=== PATIENT | female | born 1950 | race Caucasian/White ===

== ENCOUNTER → 2017-01-17 | Outpatient (CLI) | payer MEDICARE ==
--- NOTE | 2017-01-21 09:06 | MM ---
Reason for exam: screening (asymptomatic). Last mammogram was performed 1 year and 7 months ago. History: Patient is postmenopausal, history of other cancer, and is nulliparous. Family history of breast cancer in mother at age 79. Physical Findings: A clinical breast exam by your physician is recommended on an annual basis and results should be correlated with mammographic findings. MG 3D Screening Mammo W/Cad Bilateral CC and MLO view(s) were taken. Prior study comparison: June 06, 2015, bilateral MG 3d screening mammo w/cad. March 12, 2014, bilateral MG screening mammo w CAD. March 10, 2013, bilateral digital screening mammo w/CAD. There are scattered fibroglandular densities. Scattered benign secretory calcifications. No significant changes when compared with prior studies. ASSESSMENT: Negative, BI-RAD 1 RECOMMENDATION: Routine screening mammogram of both breasts in 1 year.
== END | disposition home or self-care (01) ==
LOC: RADMAMWWP 13:31
PROVIDERS: ATTEND Internal Medicine
DX: Z12.31 Encounter for screening mammogram for malignant neoplasm of breast (principal)
CPT/HCPCS: 77063; G0202

== ENCOUNTER → 2018-01-22 | Outpatient (CLI) | payer MEDICARE ==
--- NOTE | 2018-01-28 11:47 | MM ---
Reason for exam: screening (asymptomatic). Last mammogram was performed 1 year ago. History: Patient is postmenopausal, has history of other cancer at age 59, and is nulliparous. Family history of breast cancer in mother at age 79. Physical Findings: A clinical breast exam by your physician is recommended on an annual basis and results should be correlated with mammographic findings. MG 3D Screening Mammo W/Cad Bilateral CC and MLO view(s) were taken. Prior study comparison: January 17, 2017, bilateral MG 3d screening mammo w/cad. June 06, 2015, bilateral MG 3d screening mammo w/cad. There are scattered fibroglandular densities. Stable benign calcifications. There is no discrete abnormality. No significant changes when compared with prior studies. ASSESSMENT: Benign, BI-RAD 2 RECOMMENDATION: Routine screening mammogram of both breasts in 1 year.
== END | disposition home or self-care (01) ==
LOC: RADMAMWWP 07:33
PROVIDERS: ATTEND Internal Medicine
DX: Z12.31 Encounter for screening mammogram for malignant neoplasm of breast (principal)
CPT/HCPCS: 77063; 77067

== ENCOUNTER → 2019-02-05 | Outpatient (CLI) | payer MEDICARE ==
--- NOTE | 2019-02-10 09:56 | MM ---
Reason for exam: screening (asymptomatic). Last mammogram was performed 1 year ago. History: Patient is postmenopausal, has history of other cancer at age 59, and is nulliparous. Family history of breast cancer in mother at age 79. Physical Findings: A clinical breast exam by your physician is recommended on an annual basis and results should be correlated with mammographic findings. MG 3D Screening Mammo W/Cad Bilateral CC and MLO view(s) were taken. Prior study comparison: January 22, 2018, bilateral MG 3d screening mammo w/cad. January 17, 2017, bilateral MG 3d screening mammo w/cad. There are scattered fibroglandular densities. Increasing secretory calcifications on the right. Nodular asymmetric density lateral anterior left breast has a reinform shape on 3D but appears larger from priors. Intramammary lymph node is suspected. 6 month follow up recommended. ASSESSMENT: Probably benign, BI-RAD 3 RECOMMENDATION: Follow-up diagnostic mammogram of the left breast in 6 months.
== END | disposition home or self-care (01) ==
LOC: RADMAMWWP 11:18
PROVIDERS: ATTEND Internal Medicine
DX: Z12.31 Encounter for screening mammogram for malignant neoplasm of breast (principal)
CPT/HCPCS: 77063; 77067

== ENCOUNTER → 2020-03-02 | Outpatient (CLI) | payer MEDICARE ==
--- NOTE | 2020-03-03 14:03 | MM ---
Reason for exam: screening (asymptomatic). Last mammogram was performed 1 year and 1 month ago. History: Patient is postmenopausal, has history of other cancer at age 59, and is nulliparous. Family history of breast cancer in mother at age 79. Physical Findings: A clinical breast exam by your physician is recommended on an annual basis and results should be correlated with mammographic findings. MG 3D Screening Mammo W/Cad Bilateral CC and MLO view(s) were taken. Prior study comparison: February 05, 2019, bilateral MG 3d screening mammo w/cad. January 22, 2018, bilateral MG 3d screening mammo w/cad. There are scattered fibroglandular densities. Benign appearing bilateral calcifications. No significant changes when compared with prior studies. ASSESSMENT: Benign, BI-RAD 2 RECOMMENDATION: Routine screening mammogram of both breasts in 1 year.
== END | disposition home or self-care (01) ==
LOC: RADMAMWWP 13:12
PROVIDERS: ATTEND Internal Medicine
DX: Z12.31 Encounter for screening mammogram for malignant neoplasm of breast (principal)
CPT/HCPCS: 77063; 77067

== ENCOUNTER → 2021-12-04 | Outpatient (CLI) | payer MEDICARE ==
[2021-12-04 18:53] LABS: ALT 19 U/L (8-44); AST 22 U/L (13-35); African American GFR (CKD) 86.6 (60.0-200.0); Albumin 4.1 g/dL (3.8-4.9); Albumin/Globulin Ratio 1.52 (1.60-3.17); Alkaline Phosphatase 81 U/L (41-126); BUN/Creat Ratio 19.25 Ratio (12.00-20.00); Blood Urea Nitrogen 15.4 mg/dL (9.0-27.0); Calcium 9.6 mg/dL (8.7-10.3); Carbon Dioxide 26.1 mmol/L (20.0-27.5); Chloride 94 mmol/L (96-109); Globulin 2.7 g/dL (1.6-3.3); Glucose 110 mg/dL (70-110); Non-African American GFR(CKD) 74.7 (60.0-200.0); Potassium 3.8 mmol/L (3.5-5.5); Sodium 135 mmol/L (135-145); Total Protein 6.8 g/dL (6.2-8.2)
== END | disposition home or self-care (01) ==
LOC: LABWHC1 14:13
PROVIDERS: ATTEND Internal Medicine Interventional Cardiology
DX: I48.91 Unspecified atrial fibrillation (principal)
CPT/HCPCS: 36415; 80053; 84443

== ENCOUNTER 2022-03-08 09:47 | Day surgery (SDC) | payer MEDICARE ==
[2022-03-07 08:22] VITALS: BMI 39.5
[~2022-03-08 09:47] MED LIST: LACTATED RINGERS 1,000 ML IV SCH; LIDOCAINE 1% (10MG/ML) FOR IV START INTRADERMA PRN; SODIUM CHLORIDE 0.9% 1,000 ML IV SCH
[2022-03-08 10:29] VITALS: TEMP 97.1
[2022-03-08] MEDS ORDERED: IV FLUID CONTINUATION 1,000 ML IV ONE (10:47)
[2022-03-08 10:50] LABS: Calcium 8.8 mg/dL (8.4-10.2); Potassium 3.4 mmol/L (3.5-5.1)
[2022-03-08] MEDS ORDERED: PROPOFOL 10 MG/ML 20 ML VIAL IV ONE (10:53)
[2022-03-08] MEDS ORDERED: LIDOCAINE 2% INJ 20 MG/ML (2 ML VIAL) ONE (10:53)
[2022-03-08 11:36] VITALS: RESP 18
[2022-03-08 13:20] VITALS: BP 104/52; PULSE 60
--- NOTE | 2022-03-08 23:39 | CC ---
CARDIAC CATHETERIZATION REPORT PROCEDURE: Electrical cardioversion. INDICATION: Persistent atrial fibrillation. CLINICAL INFORMATION: This is a 71-year-old obese lady with a history of relatively new onset atrial fibrillation, who also underwent recent right total knee arthroplasty. She has been well anticoagulated. She was advised electrical cardioversion after due discussion regarding risks, benefits, and options. She has been on amiodarone for over 2 months. PROCEDURE NOTE: Under influence of [id number] intravenous anesthetic agent with the attendance of the anesthesiologist, a single shock was delivered with anterior and posterior patches of 200 joules. The patient converted to sinus rhythm, remained hemodynamically stable and neurologically intact. This was a successful electrical cardioversion. The details and results were reviewed with the patient and her sister. She will be discharged later on today if she remains stable and will see me in the office in 1 week as scheduled. MMSUELLEN / LUPE: [id number] /
== END 2022-03-08 12:53 | disposition home or self-care (01) ==
LOC: CATHCVL 09:47
PROVIDERS: ATTEND Internal Medicine Interventional Cardiology
DX: I48.11 Longstanding persistent atrial fibrillation (principal); I10 Essential (primary) hypertension; E78.5 Hyperlipidemia, unspecified; E78.00 Pure hypercholesterolemia, unspecified; E66.9 Obesity, unspecified; Z68.39 Body mass index [BMI] 39.0-39.9, adult; Z79.890 Hormone replacement therapy; Z79.899 Other long term (current) drug therapy; Z88.1 Allergy status to other antibiotic agents; Z20.822 Contact with and (suspected) exposure to COVID-19
CPT/HCPCS: 92960; 80048; 87635; J2704; J2001